=== PATIENT | male | born 1985 | race Hispanic/Latino ===

== ENCOUNTER → 2016-11-23 | Outpatient (CLI) | payer OTHER ==
--- NOTE | 2016-11-23 10:58 | REP ---
Three-phase radionuclide bone scan of the femurs bilaterally: There are no comparison studies. On the skeletal phase of the study. There is a focal zone of increased uptake in the distal right femoral shaft. There is no increased uptake in the left femur or in the right or left hips. The soft tissue phase of the examination demonstrates similar findings to the skeletal phase. The vascular phase of the study is unremarkable. Impression: There is a focal zone of increased uptake in the distal shaft of the right femur. This is nonspecific and could represent stress fracture or a bone mass. I would recommend correlation with plain films and MRI for follow up. The study is performed with MDP radiolabeled with 21.7 mCi of technetium 99m. Signed by Jay Medina MD 11/23/2016 10:49 A
== END ==
LOC: M RAD 07:59
PROVIDERS: ATTEND Physician Assistant Medical
DX: Z87.312 Personal history of (healed) stress fracture (principal); R93.6 Abnormal findings on diagnostic imaging of limbs
CPT/HCPCS: 78315; A9503

== ENCOUNTER 2018-04-17 11:53 | Emergency (ER) | payer OTHER ==
[~2018-04-17] VITALS: Ht 175.3 cm; Wt 80.9 kg
[2018-04-17] MEDS ORDERED: TIZA4CAP (12:10)
[2018-04-17] MEDS ORDERED: PERCOCET 5MG/325MG TAB PO ONE (15:00)
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
[2018-04-17 15:40] VITALS: BP 123/70
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
[2018-04-17] MEDS ORDERED: PERC5TAB12 PO (16:01)
== END 2018-04-17 16:10 | disposition home or self-care (01) ==
LOC: M ED 11:53
DX: S16.1XXA Strain of muscle, fascia and tendon at neck level, initial encounter (principal); T14.8XXA Other injury of unspecified body region, initial encounter; V49.59XA Passenger injured in collision with other motor vehicles in traffic accident, initial encounter; Y92.410 Unspecified street and highway as the place of occurrence of the external cause; F17.210 Nicotine dependence, cigarettes, uncomplicated